=== PATIENT | female | born 1960 | race Caucasian/White ===

== ENCOUNTER 2020-05-24 08:43 | Day surgery (SDC) | payer OTHER ==
[2020-05-24] MEDS ORDERED: LACTATED RINGERS 1,000 ML IV ONE (09:25)
[2020-05-24] MEDS ORDERED: MIDAZOLAM 2 MG/2 ML VIAL IVP ONE (10:22)
[2020-05-24] MEDS ORDERED: fentaNYL 250 MCG/5 ML VIAL IVP ONE (10:22)
[2020-05-24] MEDS ORDERED: ONDANSETRON 4 MG/2 ML VIAL IVP ONE (10:22)
--- NOTE | 2020-05-24 10:59 | OPERATIVE REPORT ---
Operative Report - General Procedure Date: 05/24/20 Planned Procedure: Colonoscopy with possible biopsy or polypectomy Pre-Op Diagnosis: screening for colorectal cancer Procedure Performed: Colonoscopy with forceps polypectomy Post Op Diagnosis: 1. sigmoid colon polyp; 2. diverticulosis - Procedure Note Primary Surgeon: Mesfin Arora MD Anesthesia Provider: nurse sedation Anesthesia Technique: Moderate sedation Pathology: sgimoid colon polyp Indications: screening for colorectal cancer Findings: 1. 5 mm sessile sigmoid polyp 2. Moderate diverticulosis involving descending and sigmoid colon Complications: none - Other Other Information/Narrative: After informed consent and preop H & P, pt was taken to the procedure room and sedated and monitored. total sedation time was 24 minutes. VS remained stable throughout. Pt was placed in the left lateral decubitus position; a digital rectal exam was performed. The Pentax Blue and White colonoscope was inserted transanally into the rectum and advanced into the cecum without difficulty. Findings were noted above. The scope was carefully withdrawn and the findings confirmed. The identified polyp was resected with the jumbo cold biopsy forceps and the tissue sent to pathology. Bleeding was minimal. The scope was retroflexed in the rectum. The scope was then removed and the procedure terminated without apparent complication. Pt tolerated the procedure well. Appropriate f/u instructions were given.
[2020-05-24 11:32] VITALS: BP 115/67
== END 2020-05-24 08:44 | disposition home or self-care (01) ==
LOC: SDS 08:43
PROVIDERS: ATTEND Internal Medicine Gastroenterology
PROC: 0DBN8ZX Excision of Sigmoid Colon, Via Natural or Artificial Opening Endoscopic, Diagnostic (ICD-10-PCS; principal; 2020-05-24 09:45)
DX: Z12.11 Encounter for screening for malignant neoplasm of colon (principal); K57.30 Diverticulosis of large intestine without perforation or abscess without bleeding; K63.5 Polyp of colon
CPT/HCPCS: 45380; J3010; J7120